=== PATIENT | female | born 1990 | race Caucasian/White ===

== ENCOUNTER → 2018-07-29 10:03 | Outpatient (CLI) | payer OTHER, MEDICAID, SELFPAY ==
[2018-07-30 11:17] LABS: Strep Grp B PCR NEG for Grp B Strep
== END ==
DX: Z34.83 Encounter for supervision of other normal pregnancy, third trimester (principal)
CPT/HCPCS: 87653

== ENCOUNTER 2018-08-28 04:25 | Inpatient (IN) | payer OTHER, MEDICAID, SELFPAY ==
--- NOTE | 2018-08-28 06:37 | PM.OBHP.1 ---
OB HPI Date/Time Date of admission: 08/28/18 Date Patient Seen: 08/28/18 Time Patient Seen: 06:20 History of Present Condition Chief complaint: OBSERVATION : 2 Para: 1 Estimated Date of Delivery: 08/29/18 Estimated Gestational Age (weeks): 39w6d Narrative: Sabrina Marks is a 28 year old at 39w6d who presented with regular painful contractions starting earlier in the evening. At the time of presentation, they were approximately 2-3 minutes apart. No LOF or vaginal bleeding. History of Present care: good care Dating criteria: based on 1st trimester US only Ultrasounds: normal mid trimester US Narrative: LSIL on pap smear, needs colposcopy Preadmission Labs Blood type: O (+) positive -: Antibody screen: negative, GBS status: negative, HBsAG: negative, HIV: negative, HSV 1: negative and HSV 2: negative -: Rubella: not immune and Varicella: immune HCT: 36.9 HCAB: negative PAP: Abnormal (LSIL) Quad screen: Normal Narrative: 1hr GTT never completed Prior (ies) History: 06/28/13 - at 40wks gestation without complications, male, 8lbs Evaluation Evaluation Baseline heart rate: 120 Variability: Moderate (11-25) monitor accelerations: Present monitor decelerations: Absent Contraction Frequency (minutes): 2 Uterine Contraction Intensity: Strong/Firm Category of Tracing: I Cervical dilation (cm): 5 Cervical effacement (%): 100 station: -1 [facility] Medical History Abnormal Pap smear of cervix (Chronic) Chicken pox (Resolved ~1996) Surgical History History of tonsillectomy (~1999) Meds Home Medications Medication Instructions Recorded Confirmed Type clindamycin HCl 300 mg PO TID #30 cap 09/04/17 Rx hydrocodone-acetaminophen [[place]] 1 - 2 tab PO Q6H PRN #10 tab 09/04/17 Rx Exam Const General: cooperative, healthy appearing, comfortable and well developed Nutritional Appearance: average body habitus Orientation: alert, awake and oriented x3 Neck Neck: No lymphadenopathy Resp Effort & Inspection: normal respiratory effort Auscultation: clear to auscultation bilaterally Cardio Rate: regular rate Rhythm: regular rhythm Heart Sounds: S1 normal, S2 normal and no murmurs GI Inspection: normal to inspection Palpation: soft Skin Rashes: no rashes Assessment and Plan (1) Term : Current visit: Yes Status: Acute Plan: Plan: 28yo at 39w6d who presented in active labor. No complications with . GBS negative, Rh positive. - Expectant management, anticipate - GBS negative, no prophylaxis indicated - Does not desire epidural for pain control - FHT reassuring - Natural methods for pain control
--- NOTE | 2018-08-28 06:46 | P.HPOB_ITS ---
OB HPI Date/Time Date of admission: 08/28/18 Date Patient Seen: 08/28/18 Time Patient Seen: 06:20 History of Present Condition Chief complaint: OBSERVATION : 2 Para: 1 Estimated Date of Delivery: 08/29/18 Estimated Gestational Age (weeks): 39w6d Narrative: Sabrina Marks is a 28 year old at 39w6d who presented with regular painful contractions starting earlier in the evening. At the time of presentation, they were approximately 2-3 minutes apart. No LOF or vaginal bleeding. History of Present care: good care Dating criteria: based on 1st trimester US only Ultrasounds: normal mid trimester US Narrative: LSIL on pap smear, needs colposcopy Preadmission Labs Blood type: O (+) positive -: Antibody screen: negative, GBS status: negative, HBsAG: negative, HIV: negative, HSV 1: negative and HSV 2: negative -: Rubella: not immune and Varicella: immune HCT: 36.9 HCAB: negative PAP: Abnormal (LSIL) Quad screen: Normal Narrative: 1hr GTT never completed Prior (ies) History: 06/28/13 - at 40wks gestation without complications, male, 8lbs Evaluation Evaluation Baseline heart rate: 120 Variability: Moderate (11-25) monitor accelerations: Present monitor decelerations: Absent Contraction Frequency (minutes): 2 Uterine Contraction Intensity: Strong/Firm Category of Tracing: I Cervical dilation (cm): 5 Cervical effacement (%): 100 station: -1 [facility] Medical History Abnormal Pap smear of cervix (Chronic) Chicken pox (Resolved ~1996) Surgical History History of tonsillectomy (~1999) Meds Home Medications Medication Instructions Recorded Confirmed Type clindamycin HCl 300 mg PO TID #30 cap 09/04/17 Rx hydrocodone-acetaminophen [[place]] 1 - 2 tab PO Q6H PRN #10 tab 09/04/17 Rx Exam Const General: cooperative, healthy appearing, comfortable and well developed Nutritional Appearance: average body habitus Orientation: alert, awake and oriented x3 Neck Neck: No lymphadenopathy Resp Effort & Inspection: normal respiratory effort Auscultation: clear to auscultation bilaterally Cardio Rate: regular rate Rhythm: regular rhythm Heart Sounds: S1 normal, S2 normal and no murmurs GI Inspection: normal to inspection Palpation: soft Skin Rashes: no rashes Assessment and Plan (1) Term : Current visit: Yes Status: Acute Plan: Plan: 28yo at 39w6d who presented in active labor. No complications with . GBS negative, Rh positive. - Expectant management, anticipate - GBS negative, no prophylaxis indicated - Does not desire epidural for pain control - FHT reassuring - Natural methods for pain control
--- NOTE | 2018-08-28 06:49 | PM.OBPRVD ---
Delivery date: 08/28/18 Intrapartal events: Precipitous Labor < 3 hours Induction method: none Delivery monitor: external FHT Route of delivery: Episiotomy description: None Laceration description: None Estimated blood loss (mL): 100 Anesthesia type: None Complications: None Narrative: PROCEDURE: at 39w6d presented in active labor and was admitted to Labor and Delivery. The patient progressed through the 1st stage over 4.5 hours. Pain was controlled with natural methods. Membranes spontaneously ruptured with clear fluid present. The patient progressed through the 2nd stage over 14 minutes and had a precipitous delivery by nursing staff of a viable baby girl with APGARs 8/9 at 6:12 via . Terminal meconium was present. The perineum and vagina were inspected with no lacerations present. PREPROCEDURE DIAGNOSIS: Intrauterine at 39w6d GBS negative RH positive POSTPROCEDURE DIAGNOSIS: Intrauterine at 39w6d, delivered Same as preprocedure PROCEDURE: INDUCTION: No LABOR AUGMENTATION: None ROM APPEARANCE: Clear, then terminal meconium BABY A DELIVERY TIME: 6:12 BABY A OUTCOME: Viable BABY A WEIGHT: [] BABY A NUCHAL CORD: x1, reduced after delivery BABY A CORD GASES OBTAINED: None PLACENTA DELIVERY TIME: 6:26 PLACENTA APPEARANCE: Intact [place] Baby 1: Infant gender: Female Presentation: vertex position: Right Occiput Anterior Placenta delivery description: Spontaneous cord vessel description: 3 Vessels score (1 min): 8 score (5 min): 9 Plan for aftercare: Normal care support
[2018-08-28 07:50] LABS: Add Manual Diff / Slide Review NO; Basophils Percent Auto 0.6 % (0-2); Eosinophils Percent Auto 0.3 % (2-4); Hematocrit 44.6 % (36-46); Hemoglobin 15.4 g/dL (12.0-16.0); Lymphocytes Percent Auto 16.8 % (25-40); Mean Corpuscular HGB Conc 34.5 % (30-36); Mean Corpuscular Hemoglobin 32.5 PG (26-34); Mean Corpuscular Volume 94.1 fL (80-100); Monocytes Percent Auto 5.5 % (3-14); Neutrophils Absolute Auto 11300 /uL (3000-5900); Neutrophils Percent Auto 76.8 % (50-75); Platelet Count 148 X10^3/uL (150-400); Red Blood Cell Count 4.74 X10^6/uL (4.0-5.2); Red Cell Distribution Width 12.9 % (11.6-14.8); White Blood Cell Count 14.7 X10^3/uL (4.5-11.0)
[2018-08-28] MEDS: DOCUSATE 250 MG CAPSULE PO (09:11)
[2018-08-28] MEDS: PRENATAL VIT,CALC/IRON/FOLIC 1 TABLET 1 TAB PO (09:15)
[2018-08-28] MEDS: IBUPROFEN 600 MG TABLET PO ×2 (09:15→15:09)
[2018-08-28 10:20] VITALS: BP 135/89
--- NOTE | 2018-08-28 14:20 | P.DS_ITS ---
Discharge Providers Date of admission: 08/28/18 04:25 Consults: 08/28/18 09:02 Consult to Labeler Routine Comment: Discharge provider: Adriana Mcelroy MD Discharge Date: 08/28/18 Summary Date Patient Seen: 08/28/18 Time Patient Seen: 14:20 Hospital Course: Patient arrived on Labor and delivery in active labor. She had a precipitous spontaneous vaginal delivery she had no tears. The patient was urinating and ambulatory. She requests early discharge because she is unable to quit smoking and declines trying a a smoking patch. She feels she needs to leave the hospital so she can smoke. The baby will remain in the hospital and she will come and go. The patient's abdomen is soft, nontender. Uterus is firm, at U, nontender. Mild lochia. Extremities without edema and nontender. Peripartum Data Infant Delivery Method: Natural Vaginal Laceration description: None Procedures: Spontaneous vaginal delivery complications: none Discharge Diagnosis (1) Term : Status: Acute (2) Vaginal delivery: Status: Acute (3) Smoker unmotivated to quit: Status: Acute Status at Discharge Functional status at discharge: independent ambulation Overall status at discharge: patient is progressing back to baseline Time Spent with Patient Total time spent providing and/or coordinating discharge services: Less than 30 minutes Time spent discussing smoking cessation with patient: 3 to 10 minutes Objective Labs Result Diagrams: 08/28/18 05:40 Labs: Laboratory Results - last 24 hr 08/28/18 08/28/18 05:40 05:40 WBC 14.7 H RBC 4.74 Hgb 15.4 Hct 44.6 MCV 94.1 MCH 32.5 MCHC 34.5 RDW 12.9 Plt Count 148 L Neut % (Auto) 76.8 H Lymph % (Auto) 16.8 L [place] % (Auto) 5.5 Eos % (Auto) 0.3 L Baso % (Auto) 0.6 Neut # (Auto) 47108 H Blood Type O Positive Antibody Screen Negative Discharge Plan Discharge Plan Patient Disposition: Home Discharge comment: Follow up with Dr. Molina SaturdayOctober 07 at 10:45 for 6 week appointment. MMR needed. Discharge Med Rec/Prescriptions Prescriptions: New ibuprofen 600 mg Tablet 600 mg PO Q6HR PRN (Reason: Pain, Mild (1-3)) Qty: 30 RF: 0 Discontinued clindamycin HCl 300 MG capsule 300 mg PO TID Qty: 30 RF: 0 hydrocodone-acetaminophen [[place]] 5 MG/325 MG tablet 1 - 2 tab PO Q6H PRNQty: 10 RF: 0 Follow up/Referrals: Bhavani Chung MD [Physician] - 6 Weeks Shaun Molina MD [Physician] - 6 Weeks Provider Discharge Instructions Diet: Regular Skin/Wound/Dressing Care Report to your healthcare provider any signs of infection, such as:: chills, fever, increased pain and unusual drainage Visit Report/Discharge Packet Stand Alone Forms: Discharge: Care Visit Report Forms: Stroke Signs & Symptoms Discharge Data Attending Provider: Bhavani Chung Admit Date/Time: 08/28/18 04:25 Discharges patient from system. Discharge Date/Time: 08/28/18 15:45
[2018-08-28 15:10] VITALS: BP 132/86; PULSE 62; RESP 18; TEMP 36.3
[2018-08-28 15:22] VITALS: BP 132/86; PULSE 62; RESP 18; TEMP 36.3
== END 2018-08-28 15:45 | disposition home or self-care (01) | DRG 560 ==
PROVIDERS: Admitting Provider Family Medicine; Visit Provider Family Medicine
DX: O62.3 Precipitate labor (principal); Z3A.39 39 weeks gestation of pregnancy; Z37.0 Single live birth; O77.0 Labor and delivery complicated by meconium in amniotic fluid; O69.81X0 Labor and delivery complicated by cord around neck, without compression, not applicable or unspecified; O99.334 Smoking (tobacco) complicating childbirth; F17.210 Nicotine dependence, cigarettes, uncomplicated
CPT/HCPCS: 59050; 59409; 85025; 86850; 86900; 86901; G0379

== ENCOUNTER 2018-10-27 18:26 | Emergency (ER) | payer OTHER, MEDICAID, SELFPAY ==
[2018-10-27 18:31] VITALS: BP 132/87; PULSE 88; RESP 14; TEMP 37; O2SAT 99; BMI 25.7
[2018-10-27] MEDS: ACETAMINOPHEN 325 MG TABLET 975 MG PO (18:37)
--- NOTE | 2018-10-27 19:19 | ED_ITS ---
HPI - Ear Problem <Tammie Alvarez PA-C - Last Filed: 10/27/18 21:15> General Chief complaint: Ear Stated complaint: LEFT SIDE EAR PAIN Time Seen by Provider: 10/27/18 19:33 Source: patient Mode of arrival: ambulatory Limitations: no limitations History of Present Illness HPI Narrative: This 28-year-old female comes to ED due to onset of left earache this morning. She states that she took ibuprofen and went to work, but pain has been worsening. She denies any drainage from the ear. She states her hearing is normal, but the ear seems kind of sensitive, i.e. to air. She denies any sore throat, congestion, sinus pain, cough or other upper respiratory symptoms. She denies any fever or other new complaints. She is breast feeding Related Data Home Medications Medication Instructions Recorded Confirmed ibuprofen 200 mg PO Q6HR PRN 10/27/18 10/27/18 Previous Rx's Medication Instructions Recorded ibuprofen 800 mg PO TID PRN #30 tab 10/27/18 Allergies Allergy/AdvReac Type Severity Reaction Status Date / Time No Known Drug Allergies Allergy Verified 10/07/18 11:05 Review of Systems <Tammie Alvarez PA-C - Last Filed: 10/27/18 21:15> Review of Systems All systems reviewed & are unremarkable except as noted in HPI and below Exam <Tammie Alvarez PA-C - Last Filed: 10/27/18 21:15> Narrative Exam Narrative: GENERAL APPEARANCE: Patient sitting comfortably, in no distress. HEAD: No sinus TTP. EYES: PERRL, EOMI. EARS: Normal auditory canals, TMS intact, but L. is slightly retracted with minimal injection. No external tenderness ORAL CAVITY: Normal oropharynx. THROAT: Clear. Tonsils absent NECK/THYROID: Neck supple, full range of motion, small tender shotty anterior nodes LUNGS: Clear to auscultation bilaterally, no cough on exam. HEART: RRR without murmur, nl S1, S2, no S3 or S4. Initial Vital Signs Initial Vital Signs: Vital Signs Temperature 98.6 F 10/27/18 18:31 Pulse Rate 88 18 18:31 Respiratory Rate 14 18 18:31 Blood Pressure 132/87 10/27/18 18:31 Pulse Oximetry 99 10/27/18 18:31 <Shaun Palomo MD - Last Filed: 10/28/18 07:20> Initial Vital Signs Initial Vital Signs: Vital Signs Temperature 98.6 F 10/27/18 18:31 Pulse Rate 88 10/27/18 18:31 Respiratory Rate 14 18 18:31 Blood Pressure 132/87 10/27/18 18:31 Pulse Oximetry 99 10/27/18 18:31 Course <Tammie Alvarez PA-C - Last Filed: 10/27/18 21:15> Orders Ordered: Discontinued Medications Acetaminophen (Tylenol) 975 mg PO NOW ONE Stop: 10/27/18 18:37 Last Admin: 10/27/18 18:37 Dose: 975 mg Vital Signs - 8 hr 10/27/18 18:31 10/27/18 19:21 10/27/18 20:02 Temperature 98.6 F 98.6 F Pulse Rate 88 88 71 Respiratory Rate 14 14 16 Blood Pressure 132/87 132/87 Blood Pressure [Left Arm] 115/82 Pulse Oximetry 99 99 97 <Shaun Palomo MD - Last Filed: 10/28/18 07:20> Orders Ordered: Discontinued Medications Acetaminophen (Tylenol) 975 mg PO NOW ONE Stop: 10/27/18 18:37 Last Admin: 10/27/18 18:37 Dose: 975 mg Vital Signs - 8 hr 18 18:31 10/27/18 19:21 10/27/18 20:02 Temperature 98.6 F 98.6 F Pulse Rate 88 88 71 Respiratory Rate 14 14 16 Blood Pressure 132/87 132/87 Blood Pressure [Left Arm] 115/82 Pulse Oximetry 99 99 97 Discharge Plan Departure Patient Disposition: Home Clinical Impression: Acute otalgia Discharge Date/Time: 10/27/18 20:11 Interventions: ED Discharge Assessment Last Done: 10/27/18 20:11 Instructions: DI for Ear Pain-Adult Activity Restrictions/Additional Instructions: Please return as we talked about if you have acutely worsening symptoms, or new symptoms such as high fever. Please take the ibuprofen every 8 hr and you can at Tylenol as needed. You can also use cotton in the ear and a warm pack may be helpful as well. Please follow up with your PCP for recheck if this is not better in the next day or two. (This may be acute irritation or may be a virus since your 7 year old was sick) Prescriptions: New ibuprofen 800 mg tablet 800 mg PO TID PRN (Reason: pain) Qty: 30 RF: 0 No Action ibuprofen 600 mg tablet 200 mg PO Q6HR PRN (Reason: Pain, Mild (1-3)) RF: 0 Referrals: Bhavani Chung MD [Physician] - <Shaun Palomo MD - Last Filed: 10/28/18 07:20> [facility] I was present in the ER at the time this patient's care. I was available for verbal consultation or to see the patient directly. I agree with his assessment and treatment plan.
[2018-10-27 19:21] VITALS: BP 132/87; PULSE 88; RESP 14; TEMP 37; O2SAT 99; BMI 25.7
[2018-10-27 20:02] VITALS: BP 115/82; PULSE 71; RESP 16; O2SAT 97
== END 2018-10-27 20:11 | disposition home or self-care (01) ==
PROVIDERS: Emergency Provider Internal Medicine
DX: H92.02 Otalgia, left ear (principal)
CPT/HCPCS: 99282; 99283

== ENCOUNTER 2018-10-29 04:22 | Emergency (ER) | payer OTHER, MEDICAID, SELFPAY ==
--- NOTE | 2018-10-29 04:28 | ED.EAR ---
HPI - Ear Problem General Chief complaint: Ear Stated complaint: Left Ear Sensitive, feels swollen, pain down face Time Seen by Provider: 10/29/18 04:26 Source: patient Mode of arrival: ambulatory Limitations: no limitations History of Present Illness HPI Narrative: Patient is a 28-year-old female who is currently breast-feeding. Was seen here in the emergency department a couple days ago for left ear pain. Will send home with ibuprofen. There is no defined infections seen at that point after reviewing the note from that visit. Patient states she has been taking Tylenol and Motrin with only minimal relief. No hearing issues in that ear. Not having any sinus congestion. No subjective fevers but has had chills. No sore throat. Related Data Home Medications Medication Instructions Recorded Confirmed ibuprofen 200 mg PO Q6HR PRN 10/27/18 10/27/18 Previous Rx's Medication Instructions Recorded ibuprofen 800 mg PO TID PRN #30 tab 10/27/18 penicillin V potassium 500 mg PO QID 7 Days #28 tab 10/29/18 Allergies Allergy/AdvReac Type Severity Reaction Status Date / Time No Known Drug Allergies Allergy Verified 10/07/18 11:05 Review of Systems Constitutional Reports chills and Denies fever(s) Eyes Denies change in vision ENT Ears, Nose, Mouth, and Throat: Denies vertigo, Denies dizziness, Denies ear discharge, Reports otalgia, Reports facial pain, Denies hearing loss, Denies mouth lesions, Denies mouth pain, Denies nasal congestion, Denies tinnitus, Denies sinus pressure, Denies sore throat, Denies throat swelling and Denies tongue swelling Cardiovascular Denies chest pain and Denies dyspnea Respiratory Denies dyspnea Neurologic Denies vertigo and Denies dizziness Allergic/Immunologic Denies throat swelling and Denies tongue swelling [facility] Surgical History History of tonsillectomy (~1999) Social History Smoking Status: Current every day smoker Exam Initial Vital Signs Initial Vital Signs: Vital Signs Temperature 97.6 F 10/29/18 04:29 Pulse Rate 97 H 10/29/18 04:29 Respiratory Rate 17 10/29/18 04:29 Blood Pressure 124/87 10/29/18 04:29 Pulse Oximetry 97 10/29/18 04:29 Const General: cooperative, comfortable, well developed, well groomed and No acute distress Orientation: alert, awake and oriented x3 HENMT Head: normal to inspection and normocephalic Ears: TM's normal bilaterally and EAC's normal Nose: external nose normal Face and sinus: other (Left maxillary sinus tenderness to percussion) Mouth: oral mucosae normal, lip normal and tongue normal Teeth and gingiva: other (Patient with cracked tooth number 18) Throat: posterior oropharynx normal Neck Lymphatic: lymphadenopathy (Left-sided anterior posterior cervical lymphadenopathy and submandibular) Resp Effort & Inspection: normal respiratory effort Auscultation: clear to auscultation bilaterally Cardio Rate: regular rate Rhythm: regular rhythm Skin Lesions: no lesions Neuro General: alert, awake and oriented x3 Extrem General: normal to inspection and capillary refill normal Psych Appearance: grossly normal and well kempt Course Vital Signs - 8 hr 10/29/18 04:29 Temperature 97.6 F Pulse Rate 97 H Respiratory Rate 17 Blood Pressure 124/87 Pulse Oximetry 97 Medical Decision Making Medical Records Medical records reviewed: Yes I reviewed the patient's medical records. [facility] Narrative Medical decision making narrative: Patient's tympanic membranes bilaterally are unremarkable. Does have tender left-sided lymphadenopathy. She does have tenderness to palpation of the left maxillary sinus. She does have a cracked left lower tooth. She does have some discomfort in this area however there is no defined abscess seen on the exam. The lymphadenopathy the could be secondary to a dental flexion that is just not seen on the exam. To be secondary to upper respiratory infection, sinus infection. Informed patient that she should start taking decongestants such as Claritin or Billie or Zyrtec. She was informed she could buy these [id number]. Given the cracked tooth in the location of the pain and the lack of other findings will treat with penicillin for a potential dental infection. She was informed she needed to contact her dentist for a follow-up. We did discuss the fact that she is . Informed her that these medications would be excreted in the breast milk. According to up-to-date penicillin VK is generally accepted as compatible with . I did inform the patient of this. We discussed return precautions. She expressed understanding and agreement with plan. Discharge Plan Departure Patient Disposition: Home Clinical Impression: Lymphadenopathy, cervical, Fracture of tooth Discharge Date/Time: 10/29/18 05:01 Interventions: ED Discharge Assessment Last Done: 10/29/18 05:01 Instructions: DI for Lymphadenopathy Activity Restrictions/Additional Instructions: I recommend that you continue with the Motrin and Tylenol as directed. I also recommend that you start taking a decongestant such as Claritin or Billie or Zyrtec or the generic versions of these medications. They can be purchased [id number]. Start taking the antibiotics as directed. All of these medications are excreted in the breast milk however they are all generally accepted safe in breast-feeding individuals. You do need to see a dentist regarding that fractured tooth. Call your primary care doctor for follow-up as well. Prescriptions: New penicillin V potassium 500 mg tablet 500 mg PO QID 7 Days Qty: 28 RF: 0 No Action ibuprofen 600 mg tablet 200 mg PO Q6HR PRN (Reason: Pain, Mild (1-3)) RF: 0 ibuprofen 800 mg tablet 800 mg PO TID PRN (Reason: pain) Qty: 30 RF: 0
[2018-10-29 04:29] VITALS: BP 124/87; PULSE 97; RESP 17; TEMP 36.4; O2SAT 97
== END 2018-10-29 05:01 | disposition home or self-care (01) ==
PROVIDERS: Emergency Provider Emergency Medicine
DX: R59.0 Localized enlarged lymph nodes (principal); S02.5XXA Fracture of tooth (traumatic), initial encounter for closed fracture
CPT/HCPCS: 99282

== ENCOUNTER 2020-08-31 18:23 | Inpatient (IN) | payer OTHER, MEDICAID, SELFPAY ==
[2020-08-31 19:26] LABS: Add Manual Diff / Slide Review NO; Basophils Absolute Auto 100 /uL (0-100); Eosinophils Absolute Auto 100 /uL (0-450); Eosinophils Percent Auto 0.6 % (2-4); Hematocrit 37.6 % (36-46); Hemoglobin 12.6 g/dL (12.0-16.0); Lymphocytes Absolute Auto 1800 /uL (1100-4500); Lymphocytes Percent Auto 19.2 % (25-40); Mean Corpuscular HGB Conc 33.5 % (30-36); Mean Corpuscular Volume 86.6 fL (80-100); Monocytes Absolute Auto 500 /uL (0-900); Monocytes Percent Auto 5.1 % (3-14); Neutrophils Absolute Auto 6800 /uL (1500-7000); Neutrophils Percent Auto 74.1 % (50-75); Platelet Count 116 X10^3/uL (150-400); Red Blood Cell Count 4.34 X10^6/uL (4.0-5.2); Red Cell Distribution Width 14.2 % (11.6-14.8); White Blood Cell Count 9.1 X10^3/uL (4.5-11.0)
[2020-08-31] MEDS: ACETAMINOPHEN 325 MG TABLET 650 MG PO (19:42)
[2020-08-31] MEDS: IBUPROFEN 600 MG TABLET PO (19:43)
[2020-08-31 20:18] LABS: Ur Creatinine Normal (Normal); Ur Specific Gravity Normal (Normal); Urine Cocaine Negative (Negative); Urine Tetrahydrocannabinol Positive (Negative); Urine pH Normal (Normal)
[2020-08-31 20:19] LABS: UR Morphine/Opiate cutoff 300 Negative (Negative); Urine Amphetamines Positive (Negative); Urine Barbiturates Negative (Negative); Urine Benzodiazepines Negative (Negative); Urine MDMA Negative (Negative); Urine Methadone Negative (Negative); Urine Methamphetamines Positive (Negative); Urine Oxycodone Negative (Negative); Urine Phencyclidine Negative (Negative); Urine Tricyclic Antidepressant Negative (Negative)
[2020-08-31 20:42] LABS: Hepatitis B Surface Antigen NEGATIVE s/c (NEGATIVE); Rubella Antibody IgG 4.2 IU/mL (>15)
[2020-08-31 20:45] LABS: HIV 1 & 2 Ab/Ag 4th Gen Combo NEGATIVE (NEGATIVE); Hep C Virus Ab w/Reflex Quant NEGATIVE s/c (NEGATIVE)
[2020-08-31 21:19] LABS: Urine N gonorrhoeae DETECTED
--- NOTE | 2020-08-31 21:40 | PM.HP.1 ---
History of Present Illness History of Present Illness Date Patient Seen: 08/31/20 Time Patient Seen: 21:41 Chief complaint: Obs Narrative: Antonette is a 30 year old [id number] at unknown gestational age with no care who presents via EMS after precipitous delivery at home by the father. Paramedics report that the baby was found crying vigorously. Placenta delivered spontaneously at home with no hemorrhage. Vital signs during transfer were reportedly stable. OBSTETRIC HISTORY: 06/28/2013: at 40 weeks gestational age, viable male 08/28/2018, at 39 weeks 6 days, viable female GYNECOLOGICAL HISTORY: LSIL PAST MEDICAL HISTORY: Chickenpox PAST SURGICAL HISTORY: Tonsillectomy FAMILY HISTORY: Noncontributory SOCIAL HISTORY: Single. Polysubstance abuse with methamphetamine and marijuana. Tobacco smoker, 1/2 pack per day. Mother wants to put the baby up for adoption to Torie Bernard, a close friend. She does not want any baby bonding time. Mother is currently living with her boyfriend, Francisco, in his mother's home in [place]. A 24-year-old nephew also lives there. Patient reports that her social living situation is unstable and that it is not suitable to bring a baby back into it. Her other 2 children are not currently living with her. She is unemployed. Patient History Medical History (Updated 11/13/18 @ 00:00 by ) Abnormal Pap smear of cervix (Chronic) Chicken pox (Resolved ~1996) Surgical History (Updated 04/20/18 @ 23:35 by Kell De Jesus) History of tonsillectomy (~1999) Family & Social History Tobacco & Substance use: Tobacco type cigarettes Smoking Status Current every day smoker alcohol intake frequency 0-2 drinks per day Substance Use Type does not use Meds Home Medications and Allergies Home Medications Medication Instructions Recorded Confirmed Type ibuprofen 200 mg PO Q6HR PRN 10/27/18 10/27/18 History ibuprofen 800 mg PO TID PRN #30 tab 10/27/18 Rx Allergies Allergy/AdvReac Type Severity Reaction Status Date / Time No Known Drug Allergies Allergy Verified 10/07/18 11:05 Review of Systems Review of Systems ROS: Yes All systems reviewed with the patient and are negative except as otherwise documented Exam Narrative Exam Narrative: General: NAD Skin: Color unremarkable, no rash nor lesions. HEENT: Neck supple with midline trachea. Lungs: CTAB, No wheezes, rhonchi, or rales. Heart: Normal rate, and regular rhythm, S1, S2 normal, no murmur, click, rub or gallop. Abdomen: Firm fundus at umbilicus -0, soft, non-tender, nondistended, positive bowel sounds. Extremities: No clubbing, no edema, no cyanosis. Pelvis: Normal female external genitalia, no tears. Objective Labs Result Diagrams: 08/31/20 19:10 Labs: Laboratory Results - last 24 hr 08/31/20 08/31/20 08/31/20 19:10 19:10 19:25 WBC 9.1 RBC 4.34 Hgb 12.6 Hct 37.6 MCV 86.6 MCH 29.0 MCHC 33.5 RDW 14.2 Plt Count 116 L Neut % (Auto) 74.1 Lymph % (Auto) 19.2 L [place] % (Auto) 5.1 Eos % (Auto) 0.6 L Baso % (Auto) 1.0 Neut # (Auto) 6800 Lymph # (Auto) 1800 [place] # (Auto) 500 Eos # (Auto) 100 Baso # (Auto) 100 U Opiates 300ng/mL cut Negative Ur Oxycodone Screen Negative Urine Methadone Screen Negative Ur Barbiturates Screen Negative U Tricyclic Antidepress Negative Ur Phencyclidine Scrn Negative Ur Amphetamines Screen Positive H U Methamphetamines Scrn Positive H Ur MDMA Scrn (Ecstasy) Negative U Benzodiazepines Scrn Negative Urine Cocaine Screen Negative U Marijuana (THC) Screen Positive H Hep Bs Antigen Negative Hepatitis C Antibody Negative HIV 1&2 Ab/P24 Ag 4thGn Negative Rubella Antibody 4.2 L Assessment & Plan Assessment & Plan narrative: 1. Status post precipitous home delivery at unknown gestational age, presumably term 2. 3. Polysubstance abuse 4. Absent care 5. Tobacco dependence Plan: Admit to labor and delivery with routine orders. Will run panel. [facility] protocol for drug withdrawal. Mother does not intend to breastfeed and wants to put the baby up for adoption. CPS will be called in the morning to make arrangements. Nicotine patch for tobacco dependence. Questions answered, appropriate consents will be signed.
[2020-08-31 22:02] LABS: Urine Chlamydia NOT DETECTED
[2020-08-31 23:29] LABS: COVID19 -Nasal RAPID Negative (Negative)
[2020-09-01] MEDS: IBUPROFEN 600 MG TABLET PO ×3 (01:32→19:46)
[2020-09-01] MEDS: ACETAMINOPHEN 325 MG TABLET 650 MG PO (01:32)
--- NOTE | 2020-09-01 08:01 | P.PNOB_ITS ---
Subjective - OB Subjective Patient comments: no complaints, pain well controlled, tolerating diet and flatus present baby status: adopting out Steward feeding status: exclusively bottle feeding Date Patient Seen: 09/01/20 Time Patient Seen: 08:01 Interval history: Sabrina is doing well this morning. Pain controlled with medications. Lochia less than menses. Tolerating full diet, no nausea vomiting. Has been able to ambulate. Exam Narrative Exam Narrative: General: NAD Skin: Color unremarkable, no rash nor lesions. HEENT: Neck supple with midline trachea. Lungs: CTAB, No wheezes, rhonchi, or rales. Heart: Normal rate, and regular rhythm, S1, S2 normal, no murmur, click, rub or gallop. Abdomen: Firm fundus at umbilicus -0, soft, non-tender, nondistended, positiv e bowel sounds. Extremities: No clubbing, no edema, no cyanosis. Pelvis: Normal female external genitalia, no tears. Objective Labs Result Diagrams: 08/31/20 19:10 Labs: Laboratory Results - last 24 hr 08/31/20 08/31/20 08/31/20 19:10 19:10 19:10 WBC 9.1 RBC 4.34 Hgb 12.6 Hct 37.6 MCV 86.6 MCH 29.0 MCHC 33.5 RDW 14.2 Plt Count 116 L Neut % (Auto) 74.1 Lymph % (Auto) 19.2 L [place] % (Auto) 5.1 Eos % (Auto) 0.6 L Baso % (Auto) 1.0 Neut # (Auto) 6800 Lymph # (Auto) 1800 [place] # (Auto) 500 Eos # (Auto) 100 Baso # (Auto) 100 U Opiates 300ng/mL cut Ur Oxycodone Screen Urine Methadone Screen Ur Barbiturates Screen U Tricyclic Antidepress Ur Phencyclidine Scrn Ur Amphetamines Screen U Methamphetamines Scrn Ur MDMA Scrn (Ecstasy) U Benzodiazepines Scrn Urine Cocaine Screen U Marijuana (THC) Screen Ur Chlamydia DNA (PCR) COVID-19 PCR Hep Bs Antigen Negative Hepatitis C Antibody Negative HIV 1&2 Ab/P24 Ag 4thGn Negative Rubella Antibody 4.2 L N gonorrhoeae DNA (PCR) Blood Type O Positive Antibody Screen Negative 10/21/20 10/21/20 10/21/20 19:20 19:25 20:15 WBC RBC Hgb Hct MCV MCH MCHC RDW Plt Count Neut % (Auto) Lymph % (Auto) [place] % (Auto) Eos % (Auto) Baso % (Auto) Neut # (Auto) Lymph # (Auto) [place] # (Auto) Eos # (Auto) Baso # (Auto) U Opiates 300ng/mL cut Negative Ur Oxycodone Screen Negative Urine Methadone Screen Negative Ur Barbiturates Screen Negative U Tricyclic Antidepress Negative Ur Phencyclidine Scrn Negative Ur Amphetamines Screen Positive H U Methamphetamines Scrn Positive H Ur MDMA Scrn (Ecstasy) Negative U Benzodiazepines Scrn Negative Urine Cocaine Screen Negative U Marijuana (THC) Screen Positive H Ur Chlamydia DNA (PCR) Not detected COVID-19 PCR Negative Hep Bs Antigen Hepatitis C Antibody HIV 1&2 Ab/P24 Ag 4thGn Rubella Antibody N gonorrhoeae DNA (PCR) Detected H Blood Type Antibody Screen Assessment & Plan Plan day: 1 Comments: 1. Status post precipitous home delivery at unknown gestational age, presumably term 2. 3. Polysubstance abuse 4. Absent care 5. Tobacco dependence 6. Gonorrhea infection, new Plan: 1. Routine care. 2. Status post ceftriaxone and azithromycin for treatment of gonorrhea 3. [facility] protocol for drug withdrawal. 4. Nicoderm. 5. CPS consulting. Disposition: Anticipate late discharge this afternoon after CPS meeting with patient. Time Spent With Patient Time: Total time spent is greater than 50% in coordination of care (as documented) at patient's floor/unit and/or counseling patient: Time with patient: Greater than 35 minutes
[2020-09-01] MEDS: NICOTINE 14 PATCH 14 MG TOP (09:30)
[2020-09-01] MEDS: AZITHROMYCIN 250 MG TABLET 1000 MG PO (10:15)
[2020-09-01] MEDS: cefTRIAXone 1,000 MG VIAL 250 MG IM (10:58)
[2020-09-02 01:26] VITALS: BP 110/83; PULSE 75; RESP 18; TEMP 36.8
[2020-09-02 05:14] LABS: RPR Screen Non Reactive (Non Reactive)
--- NOTE | 2020-09-02 07:33 | P.DS_ITS ---
Discharge Providers Provider Date of admission: 08/31/20 18:23 Discharge Date: 09/02/20 Primary care physician: Patricia Holland MD Consults: 08/31/20 19:39 Consult to CROSSING WATCHMAN - Manager Product Routine Comment: no care, verbalizes desire for adoption CROSSING WATCHMAN Consult: Substance Abuse Assess [facility] Health Res Need 09/01/20 18:50 Consult to It Applications Manager Routine Comment: Discharge provider: Patricia Holland MD Summary Hospital Course Date Patient Seen: 09/02/20 Procedures: None, delivered at home Hospital Course: Unremarkable except for gonorrhea infection that was picked up at lab screening upon admission. She was treated prior to discharge. Partner was advised to be treated as well. Mother is not as she is adopting out the baby. Tolerating full diet with no nausea vomiting. Ambulating well. Lochia less than menses. On day of discharge, she is afebrile with stable vital signs throughout. Discharge diagnoses: 1. 30 yo 2. Status post at unknown gestational age 3. Polysubstance abuse 4. Absent care 5. Tobacco dependence 6. Gonorrhea infection, new, treated prior to discharge Time Spent with Patient Time attestation: Total time spent providing and/or coordinating discharge services: 35 Objective Labs Result Diagrams: 08/31/20 19:10 Labs: Laboratory Results - last 24 hr 08/31/20 08/31/20 19:10 19:20 Serum VDRL Non reactive Ur Chlamydia DNA (PCR) Not detected N gonorrhoeae DNA (PCR) Detected H Exam Vital Signs (past 8 hours): - 09/02/20 01:26 Temperature 98.2 F Pulse Rate 75 Respiratory Rate 18 Blood Pressure 110/83 Narrative Exam Narrative: GENERAL: Alert and oriented, appearing stated age and in no acute distress. HEENT: Head normocephalic/atraumatic. Pupils equal, round, and reactive to light and accomodation. Extraocular muscles intact. Tympanic membranes clear. Nasal mucosa moist, septum midline. Oral mucosa moist, no lesions. Neck soft and supple, no lymphadenopathy. LUNGS: Clear to ausculation bilaterally, no wheezes, rhonchi or rales. CV: Normal S1 and S2 with regular rate and rhythm, no audible murmurs, rubs or gallops. ABDOMEN: FF at U-2. Soft, non-tender, non-distended, no organomegaly. Positive bowel sounds. EXTREMITIES: No clubbing, cyanosis, or edema. NEURO: Cranial nerves II through XII grossly intact, no focal deficits. PSYCH: Alert and oriented x 3. SKIN: No concerning lesions. Discharge Plan Discharge Plan Patient Disposition: Home Provider Discharge Comment: Please follow up with for a 6 week appointment Discharge orders & Medications Follow up/Referrals: Patricia Holland MD [Primary Care Provider] - Diet/Activity/Treatments Diet: Diet as Tolerated Activity: 1. Routine care 2. No driving for 2 weeks. 3. Call or return for uncontrolled pain, fever, intractable nausea or vomiting, trouble with urination, heavy vaginal bleeding greater than 1 pad per hour, suicidal/homicidal thoughts, signs or symptoms of infection, or any other concerns. Visit Report/Discharge Packet Instructions: DI for Labor and Delivery, Vaginal Visit Report Forms: Patient Portal/API, Stroke Signs & Symptoms Discharge Data Primary Care Provider: Patricia Holland Discharges patient from system. Discharge Date/Time: 09/02/20 01:15
--- NOTE | 2020-09-02 09:13 | CM.SWNOTE ---
Late Entry JEWELRY BEARING MAKER Note This JEWELRY BEARING MAKER requested for consult yesterday to complete ERNA assessment for mom of new baby boy Kendrick, baby delivered by Dad at home then brought in by EMS, mom positive for meth and amphetamines, admitted to polysubstance use throughout and meth use approx 2 days before , no care, mom requesting adoption of baby, states to staff her home is not fit for a baby- and not interested in seeing or bonding w/baby. Mom left this morning at 0100, this JEWELRY BEARING MAKER unable to see speak w/mom yesterday d/t time spent in coordination w/CPS to discuss emergency placement for baby boy Kendrick (named [place] by Bio mom/dad); according to mom's DC Summary: Discharge diagnoses: 1. 30 yo 2. Status post at unknown gestational age 3. Polysubstance abuse 4. Absent care 5. Tobacco dependence 6. Gonorrhea infection, new, treated prior to discharge In coordination w/ CPS worker Brea Boswell P# [phone] and her Quality Assurance Supervisor Sara Champion P#[phone]; according to conversation- Brea had been working w/mom re: her two other children, 7 and 2 yo currently in temporary foster care, separate placements. Mom Sabrina had not disclosed to CPS that she was until approx. 2 weeks ago and had not sought care. Brea met w/bio mom and dad yesterday, reviewed plan for emergency placement and CPS custody, court order for p/u from the hospital, and both mom and dad agreed. Brea offered resources for [facility] and suggested to bio parents that they had the chance to work towards regaining custody of baby TimmyBrea suggested a 0900 mtg this morning by phone w/bio mom and dad to discuss family placement options...since CPS has had difficulty during COVID-19 Pandemic, in securing emergency foster placements for babies/children. F/u will need to now take place between CPS and bio parents as mom left early this AM stating she needed to smoke. Update from [facility] Rose this AM; Dr Holland plans to keep baby boy throughout the day, possible DC this afternoon evening, monitoring closely for s/sx of w/d, baby's tox positive for meth, meconium sent yesterday by [facility]. yesterday baby [place] was feeding, pooping and peeing normally, today would be high risk day for s/sx w/d according to nurses. Updated Brea re: baby under close monitoring for w/d...baby would be transferred if s/sx of w/d presented Following closely for support, and coordination of safe plan for baby amena Warner VIVIAN Wise
== END 2020-09-02 01:15 | disposition home or self-care (01) | DRG 561 ==
PROVIDERS: Admitting Provider Student in an Organized Health Care Education/Training Program; PCP Student in an Organized Health Care Education/Training Program; Referring Provider Student in an Organized Health Care Education/Training Program; Visit Provider Student in an Organized Health Care Education/Training Program
DX: Z39.0 Encounter for care and examination of mother immediately after delivery (principal); O98.22 Gonorrhea complicating childbirth; O99.324 Drug use complicating childbirth; O62.3 Precipitate labor; O99.334 Smoking (tobacco) complicating childbirth; F17.210 Nicotine dependence, cigarettes, uncomplicated; F19.10 Other psychoactive substance abuse, uncomplicated; F15.10 Other stimulant abuse, uncomplicated
CPT/HCPCS: 36415; 80055; 80305; 86803; 86850; 86900; 86901; 87389; 87491; 87591; 87635; G0379; J0696

== ENCOUNTER 2021-08-30 10:22 | Inpatient (IN) | payer OTHER, MEDICAID, SELFPAY ==
[2021-08-30] MEDS: OXYTOCIN PREMIX 30 UNIT/500 ML PLAST..BAG 250 UNIT IV (11:20)
[2021-08-30] MEDS: LACTATED RINGERS 1,000 ML 125 ML IV (11:20)
[2021-08-30] MEDS: KETOROLAC 30 MG/ML VIAL IV (11:31)
[2021-08-30 11:37] VITALS: BP 138/98
[2021-08-30 12:01] LABS: COVID19 - ADMIT (NP swab/PCR) Negative (Negative)
--- NOTE | 2021-08-30 12:49 | PM.OBHP.1 ---
OB HPI Date/Time Date of admission: 08/30/21 Date Patient Seen: 08/30/21 Time Patient Seen: 10:30 History of Present Condition Chief complaint: L&D : 4 Para: 4 Estimated Date of Delivery: 09/03/21 Estimated Gestational Age (weeks): 39+3 Narrative: Sabrina Marks is a 31 year old LMP uncertain with self determined BROOKE of 09/03/2021 who delivered EN route to the hospital earlier today. She has received no care with this and has been a regular user of methamphetamine and marijuana throughout the . She delivered her last child without benefit of care and was a meth user at that time too. That is in foster care and this infant apparently will be as well. Patient denies any significant medical symptoms during . She did have some spotting in June 2021 at about which time she believe she 1st felt the baby move. She has 2 prior vaginal deliveries at [facility]. History of Present care: none Dating criteria: other (Best estimate by patient) Prior (ies) History: x 3 [facility] Medical History (Updated 08/30/21 @ 13:33 by Jayy Woo MD) Abnormal Pap smear of cervix Chicken pox (~1996) Surgical History History of tonsillectomy (~1999) Social History Smoking Status: Current every day smoker Meds Home Medications and Allergies Home Medications Medication Instructions Recorded Confirmed Type No Known Home Medications 08/30/21 08/30/21 History Allergies Allergy/AdvReac Type Severity Reaction Status Date / Time No Known Drug Allergies Allergy Verified 10/07/18 11:05 Review of Systems Review of Systems Narrative: Problem-specific ROS positives included in HPI Exam Vital Signs (past 8 hours): - 08/30/21 11:37 Blood Pressure 138/98 H Const General: cooperative and comfortable Nutritional Appearance: overweight Orientation: alert and oriented x3 HENMT Head: normal to inspection, atraumatic and abrasion Ears: hearing grossly normal bilaterally Nose: external nose normal Face and sinus: face symmetric Mouth: oral mucosae normal Teeth and gingiva: dentition normal Throat: posterior oropharynx normal Eyes General: appearance normal, both eyes and all related structures Conjunctivae: conjunctivae normal Sclera: sclerae normal Cornea: corneas normal Pupils: PERRL EOM: EOM intact bilaterally Neck Neck: normal visual inspection, full ROM and No lymphadenopathy Thyroid: thyroid normal Resp Effort & Inspection: normal respiratory effort and able to speak in complete sentences Auscultation: wheezes scattered wheezes Cardio Rate: regular rate Rhythm: regular rhythm Heart Sounds: S1 normal, S2 normal and no murmurs GI Inspection: normal to inspection Palpation: soft, no hepatosplenomegaly, mass (Fundus U-3) and No tender External Female Exam: other (First degree right labial laceration) Other: Upon arrival to the [facility], the placenta had passed but membranes remained in the vagina. Those membranes are easily removed. The placenta was inspected and found to be intact with central insertion of three-vessel cord. Skin General: no rashes or lesions noted Extrem General: no calf tenderness Psych Appearance: grossly normal Mental Status: mental status grossly normal Speech and Movement: speech and movement normal Mood: congruent mood Affect: normal affect Attitude: cooperative Thought Process: normal Thought Content: normal Judgment: judgment good Objective Labs Labs: Laboratory Results - last 24 hr 08/30/21 11:02 SARS-CoV-2 (PCR) Negative Assessment and Plan Assessment and Plan Assessment and Plan narrative: ASSESSMENT Intrauterine , [place], term, delivered out of hospital Superficial right labial laceration Methamphetamine abuse Tobacco user (smoker) Marijuana use PLAN Routine care labs financial services intern consult IM Depo-Provera prior to discharge Discharge later today at patient request following social service liaison visit Time Spent with Patient Total time spent with greater than 50% in coordination of care (as documented) at patient's floor/unit and/or counseling patient:: 15-24 minutes
[2021-08-30 13:41] LABS: Add Manual Diff / Slide Review NO; Basophils Absolute Auto 0 /uL (0-100); Basophils Percent Auto 0.3 % (0-2); Eosinophils Absolute Auto 100 /uL (0-450); Eosinophils Percent Auto 0.4 % (2-4); Hematocrit 30.5 % (36-46); Hemoglobin 10.2 g/dL (12.0-16.0); Lymphocytes Absolute Auto 1300 /uL (1100-4500); Mean Corpuscular HGB Conc 33.4 % (30-36); Mean Corpuscular Volume 83.9 fL (80-100); Monocytes Absolute Auto 700 /uL (0-900); Monocytes Percent Auto 4.5 % (3-14); Neutrophils Absolute Auto 12700 /uL (1500-7000); Neutrophils Percent Auto 85.8 % (50-75); Platelet Count 145 X10^3/uL (150-400); Red Blood Cell Count 3.63 X10^6/uL (4.0-5.2); Red Cell Distribution Width 13.4 % (11.6-14.8); White Blood Cell Count 14.8 X10^3/uL (4.5-11.0)
--- NOTE | 2021-08-30 14:09 | CM.SWNOTE ---
Patient is a 31 yo female who was admitted to Center on 08/30/21 today for labor. Pt has [employer] and SEE for insurance and her PCP is Dr. Patricia Holland. EMR was reviewed. Per RN, COMPUTER NETWORK SPECIALIST consult order generated due to pt's hx of polysubstance abuse, hx of infrequent care, and active CPS involvement. Per RN, MOB has been very upfront about her active CPS involvement and forthright. MOB is G4P$ and does not have custody of any of her 3 and now 4th baby. Pt has hx of in Aug 2018, in Aug 2020, and now in Aug 2021 today. SW provided RN with contact info for CPS to update them that MOB is in labor and to confirm if current assigned CPS SW will be involved. RN called CPS and initiated referral and then received confirmation that pt's assigned CPS SW Annabella Hicks out of [place] office is aware and will be bedside later today for assessment with MOB and staff to help determine safe d/c plan for baby Kendrick. SW provided direct hospital SW contact number to RN in case CPS SW Annabella needs any additional coordination but Center direct care staffer are remarkable with coordination with CPS and family. Plan: SW to follow in case additional coordination or efforts needed but CPS SW Annabella will be the deciding factor for safe d/c plan for baby. VIVIAN King
[2021-08-30] MEDS: MEDROXYPROGESTERONE 150 MG/ML SYRINGE IM (16:44)
[2021-08-30 18:18] VITALS: BP 138/98; PULSE 90; RESP 20; TEMP 36.8
[2021-08-30] MEDS: IBUPROFEN 600 MG TABLET PO (18:35)
[2021-08-30] MEDS: TET,DIPH,PERTUSS(ACELL),VAC/PF 0.5 ML SYRINGE IM (18:38)
[2021-08-30 18:50] LABS: Urine Amphetamines Positive (Negative); Urine Methamphetamines Positive (Negative); Urine Tetrahydrocannabinol Positive (Negative)
[2021-08-30 18:51] LABS: UR Morphine/Opiate cutoff 300 Negative (Negative); Ur Creatinine Normal (Normal); Ur Specific Gravity Normal (Normal); Urine Barbiturates Negative (Negative); Urine Benzodiazepines Negative (Negative); Urine Cocaine Negative (Negative); Urine MDMA Negative (Negative); Urine Methadone Negative (Negative); Urine Oxycodone Negative (Negative); Urine Phencyclidine Negative (Negative); Urine Tricyclic Antidepressant Negative (Negative); Urine pH Normal (Normal)
[2021-08-31 05:04] LABS: RPR Screen Non Reactive (Non Reactive)
--- NOTE | 2021-08-31 07:54 | P.DS_ITS ---
Discharge Providers Provider Date of admission: 08/30/21 10:22 Discharge Date: 08/30/21 Primary care physician: Patricia Holland MD Consults: 08/30/21 10:56 Consult to JEWELRY COATER - Radio Program Checker Routine Comment: JEWELRY COATER Consult: APS/CPS Crisis Referral Discharge provider: Jayy Woo MD Summary Hospital Course Date Patient Seen: 08/30/21 Time Patient Seen: 17:50 Diagnoses: Status post out of hospital from vaginal with no care Methamphetamine abuse, sporadic Marijuana use, sporadic Cigarette smoker Hospital Course: The patient presented by ambulance having delivered en route to the hospital with the placenta already delivered. The infant was a male infant but Apgars were not recorded and the weight is not recorded in the mother's chart. labs were drawn and are pending at the time of discharge. Infant will remain in the nursery on CPS hold for foster care placement with is 1-year-old sibling. Patient sustained only a very superficial right labial laceration which would not require repair and she has minimal discomfort following delivery. She will be discharged at this time to home with follow-up scheduled in 4 weeks in has been counseled regarding precautionary symptoms, limitations of activity, medications, and plans follow-up. She will use 600 mg ibuprofen for pain relief and received a Depo-Provera shot before being discharged. The time of her 4 week follow-up, sterilization will be discussed per the patient's request. Peripartum Data Delivery Method: Natural Vaginal Laceration Description: Labial (Very superficial abrasion, right labia) Episiotomy description: None complications: none 1: Gender: Male Disposition of : foster care placement Status at Discharge Cognitive/behavioral status at discharge: oriented Functional status at discharge: independent ambulation Overall status at discharge: patient is progressing back to baseline Time Spent with Patient Time attestation: Total time spent providing and/or coordinating discharge services: Time spent: Less than 30 minutes Objective Labs Result Diagrams: 08/30/21 13:13 Labs: Laboratory Results - last 24 hr 08/30/21 08/30/21 08/30/21 11:02 13:13 13:13 WBC 14.8 H RBC 3.63 L Hgb 10.2 L Hct 30.5 L MCV 83.9 MCH 28.0 MCHC 33.4 RDW 13.4 Plt Count 145 L Neut % (Auto) 85.8 H Lymph % (Auto) 9.0 L [place] % (Auto) 4.5 Eos % (Auto) 0.4 L Baso % (Auto) 0.3 Neut # (Auto) 10138 H Lymph # (Auto) 1300 [place] # (Auto) 700 Eos # (Auto) 100 Baso # (Auto) 0 U Opiates 300ng/mL cut Ur Oxycodone Screen Urine Methadone Screen Ur Barbiturates Screen U Tricyclic Antidepress Ur Phencyclidine Scrn Ur Amphetamines Screen U Methamphetamines Scrn Ur MDMA Scrn (Ecstasy) U Benzodiazepines Scrn Urine Cocaine Screen U Marijuana (THC) Screen Serum VDRL Non reactive SARS-CoV-2 (PCR) Negative Blood Type Antibody Screen 08/30/21 08/30/21 13:13 16:50 WBC RBC Hgb Hct MCV MCH MCHC RDW Plt Count Neut % (Auto) Lymph % (Auto) [place] % (Auto) Eos % (Auto) Baso % (Auto) Neut # (Auto) Lymph # (Auto) [place] # (Auto) Eos # (Auto) Baso # (Auto) U Opiates 300ng/mL cut Negative Ur Oxycodone Screen Negative Urine Methadone Screen Negative Ur Barbiturates Screen Negative U Tricyclic Antidepress Negative Ur Phencyclidine Scrn Negative Ur Amphetamines Screen Positive H U Methamphetamines Scrn Positive H Ur MDMA Scrn (Ecstasy) Negative U Benzodiazepines Scrn Negative Urine Cocaine Screen Negative U Marijuana (THC) Screen Positive H Serum VDRL SARS-CoV-2 (PCR) Blood Type O Positive Antibody Screen Negative Exam Const General: cooperative Nutritional Appearance: overweight Orientation: alert and oriented x3 HENMT Head: normal to inspection Eyes General: appearance normal, both eyes and all related structures Neck Neck: normal visual inspection External Female Exam: externally tender, external swelling (Minimal) and laceration (Very superficial right labial laceration, no repair required) Psych Appearance: grossly normal Mental Status: mental status grossly normal Speech and Movement: speech and movement normal Mood: congruent mood Affect: normal affect Attitude: cooperative Thought Process: normal Thought Content: normal Judgment: judgment good Discharge Plan Discharge Plan Patient Disposition: Home Provider Discharge Comment: Please review the written instructions you received at the time of discharge. Your follow-up appointment is scheduled for 4 weeks and I look forward to seeing you then. Discharge orders & Medications Prescriptions: New ibuprofen 600 mg Tablet 600 mg PO Q6HR PRN (Reason: Pain, Mild (1-3)) Qty: 60 RF: 1 Follow up/Referrals: Patricia Holland MD [Primary Care Provider] - 1 Month ([address] Woo 09/25 at 3:00 pm Depo repeat injection appointment with Dr Woo Nov 21, 2021 at 11:30) Jayy Woo MD [Physician] - 1 Month Discharge Health Status Multidrug resistant organism: No MDRO Diet/Activity/Treatments Diet: Diet as Tolerated Diet comment: regular Skin/Wound/Dressing Care Report to your healthcare provider any signs of infection, such as:: chills, fever, increased pain, unusual drainage and unusual redness Visit Report/Discharge Packet Instructions: DI for Labor and Delivery, Vaginal Stand Alone Forms: Discharge: Care Discharge Data Primary Care Provider: Patricia Holland
[2021-08-31 11:10] LABS: Varicella IgG Antibody 330 index (Immune >165)
[2021-08-31 19:39] LABS: Hepatitis B Surface Antigen NEGATIVE s/c (NEGATIVE)
[2021-08-31 19:59] LABS: HIV 1 & 2 Ab/Ag 4th Gen Combo NEGATIVE (NEGATIVE); Hep C Virus Ab w/Reflex Quant NEGATIVE s/c (NEGATIVE)
[2021-09-02 03:32] LABS: Chlamydia trachomatis NAA Negative (Negative); Neisseria gonorrhoeae NAA Negative (Negative)
== END 2021-08-30 20:15 | disposition home or self-care (01) | DRG 561 ==
PROVIDERS: Admitting Provider Obstetrics & Gynecology; PCP Student in an Organized Health Care Education/Training Program; Referring Provider Obstetrics & Gynecology; Visit Provider Obstetrics & Gynecology
DX: Z39.0 Encounter for care and examination of mother immediately after delivery (principal); O99.324 Drug use complicating childbirth; F15.19 Other stimulant abuse with unspecified stimulant-induced disorder; F12.99 Cannabis use, unspecified with unspecified cannabis-induced disorder; Z3A.39 39 weeks gestation of pregnancy; O99.334 Smoking (tobacco) complicating childbirth; F17.210 Nicotine dependence, cigarettes, uncomplicated
CPT/HCPCS: 36415; 80305; 85025; 86592; 86762; 86787; 86803; 86850; 86900; 86901; 87340; 87389; 87491; 87591; 87635; 99234; C9803; 90715; G0379; J1050; J1885; J2590

== ENCOUNTER 2023-10-07 00:46 | Inpatient (IN) | payer OTHER, MEDICAID, SELFPAY ==
[2023-10-07 01:23] LABS: Add Manual Diff / Slide Review NO; Basophils Absolute Auto 200 /uL (0-100); Eosinophils Absolute Auto 100 /uL (0-450); Eosinophils Percent Auto 0.8 % (2-4); Hematocrit 39.2 % (36-46); Hemoglobin 13.5 g/dL (12.0-16.0); Lymphocytes Absolute Auto 3600 /uL (1100-4500); Lymphocytes Percent Auto 21.1 % (25-40); Mean Corpuscular HGB Conc 34.5 % (30-36); Mean Corpuscular Hemoglobin 30.6 PG (26-34); Mean Corpuscular Volume 88.8 fL (80-100); Monocytes Absolute Auto 700 /uL (0-900); Monocytes Percent Auto 4.3 % (3-14); Neutrophils Absolute Auto 12300 /uL (1500-7000); Neutrophils Percent Auto 72.8 % (50-75); Platelet Count 209 X10^3/uL (150-400); Red Blood Cell Count 4.41 X10^6/uL (4.0-5.2); Red Cell Distribution Width 13.9 % (11.6-14.8); White Blood Cell Count 16.9 X10^3/uL (4.5-11.0)
--- NOTE | 2023-10-07 01:33 | P.HPOB_ITS ---
OB HPI Date/Time Date of admission: 10/07/23 Date Patient Seen: 10/07/23 Time Patient Seen: 01:33 History of Present Condition Chief complaint: LABOR Estimated Gestational Age (weeks): unknow : 5 Para: 4 care: none Dating criteria OB: other (No dating) Obstetrical complications: other (No care, Meth and marijuana use) Medical complications OB: none Preadmission Labs Last OB Lab Results: 2 Blood Type O Positive 08/30/21 13:13 Antibody Screen Negative 08/30/21 13:13 Hematocrit 39.2 % (36-46) 10/07/23 01:10 Hemoglobin 13.5 g/dL (12.0-16.0) 10/07/23 01:10 Hepatitis B Surface Antigen Negative s/c (NEGATIVE) 08/30/21 13 :13 Hepatitis C Antibody Negative s/c (NEGATIVE) 08/30/21 13:13 Rubella Antibody 4.2 IU/mL (>15) L 08/31/20 19:10 Varicella-Zoster IgG Antibody 330 index (Immune >165) 08/30/21 13:13 Group B Streptococcus (PCR) Neg for grp b strep 07/29/18 10:03 Evaluation Evaluation Baseline heart rate: 130 Variability: Moderate (11-25) monitor accelerations: Present Monitor Decelerations: Variable Contraction Frequency (minutes): 2 Uterine Contraction Intensity: Strong/Firm Dilation (cm): 8 Effacement (%): 90 station: +1 Position of cervix: anterior Consistency: soft [facility] Medical History (Updated 08/30/21 @ 13:33 by Jayy Woo MD) Abnormal Pap smear of cervix Chicken pox (~1996) Surgical History History of tonsillectomy (~1999) Social History Smoking Status: Current every day smoker Meds Home Medications and Allergies Home Medications Medication Instructions Recorded Confirmed Type ibuprofen 600 mg tablet 600 mg PO Q6HR PRN Pain, Mild 08/30/21 Rx (1-3) #60 tabs Allergies Allergy/AdvReac Type Severity Reaction Status Date / Time No Known Drug Allergies Allergy Verified 10/07/18 11:05 OB Exam Narrative Exam Narrative: Generally: Moderate distress with contractions FH: 40 cm EFW: at least 7 1/2 pounds Ext: No edema Objective Labs 10/07/23 01:10 Labs: Laboratory Results - last 24 hr 10/07/23 01:10 WBC 16.9 H RBC 4.41 Hgb 13.5 Hct 39.2 MCV 88.8 MCH 30.6 MCHC 34.5 RDW 13.9 Plt Count 209 Neut % (Auto) 72.8 Lymph % (Auto) 21.1 L [place] % (Auto) 4.3 Eos % (Auto) 0.8 L Baso % (Auto) 1.0 Neut # (Auto) 89441 H Lymph # (Auto) 3600 [place] # (Auto) 700 Eos # (Auto) 100 Baso # (Auto) 200 H Assessment and Plan Assessment and Plan Assessment and Plan narrative: Assessment: 33 year old with no care in active labor Meconium-stained amniotic fluid Admitted Meth and marijuana use Plan: GBS obtained labs Ancef 3gm IV Peds notified Urine toxicology at delivery Expectant management to [facility]
--- NOTE | 2023-10-07 01:56 | PM.OBPRVD ---
Events: No Care and Meconium Stained Fluid (thick) Labor & Delivery Delivery date: 10/07/23 Intrapartal Events: Precipitous Labor < 3 hours Cervical ripening method: none Induction method: none Delivery monitor: external FHT and external uterine Route of delivery: Episiotomy description: None L&D Laceration Description: None Quantitative Blood Loss: 100 Anesthesia Type: None Complications: None Narrative: Patient complete and pushed with 1 contraction. At 1:44 a.m., a live female delivered spontaneously in the ASHER presentation, over an intact perineum. No nuchal cord. The remainder of the body delivered without difficulty and was placed on mom's abdomen. The cord was double clamped and cut. A piece of cord for cord pH was obtained. Cord bloods were obtained. Pitocin was given in the IV fluids. The placenta delivered intact with a three-vessel cord at 1:53 a.m.. The fundus was massaged to firm. No lacerations. Apgars 9 at 1 minute and 9 at 5 minutes. Cord pH: Venous 7.217, arterial 7.148. weight: 7 lb 13 oz. mom and infant stable to recovery. Thick meconium-stained amniotic fluid. [place] Baby 1: gender: Female Presentation: vertex Position: Left Occiput Anterior Placenta delivery description: Spontaneous Cord Vessel Description: 3 Vessels and Clamped/Cut score (1 min): 9 score (5 min): 9 weight: 7 lb 13 oz Plan for aftercare: Routine care
[2023-10-07] MEDS: LACTATED RINGERS 1,000 ML 100 ML IV (02:03)
[2023-10-07 02:15] LABS: Hepatitis B Surface Antigen NEGATIVE s/c (NEGATIVE); Rubella Antibody IgG 6.2 IU/mL (>15)
[2023-10-07 02:22] LABS: Strep Grp B PCR NEG for Grp B Strep
[2023-10-07 02:38] LABS: UR Morphine/Opiate cutoff 300 Negative (Negative); Ur Creatinine Normal (Normal); Ur Specific Gravity Normal (Normal); Urine Amphetamines Positive (Negative); Urine Barbiturates Negative (Negative); Urine Benzodiazepines Negative (Negative); Urine Cocaine Negative (Negative); Urine MDMA Negative (Negative); Urine Methadone Negative (Negative); Urine Methamphetamines Positive (Negative); Urine Oxycodone Negative (Negative); Urine Phencyclidine Negative (Negative); Urine Tetrahydrocannabinol Positive (Negative); Urine Tricyclic Antidepressant Negative (Negative); Urine pH Normal (Normal)
[2023-10-07] MEDS: ACETAMINOPHEN 325 MG TABLET 650 MG PO ×3 (07:43→23:00)
[2023-10-07] MEDS: IBUPROFEN 600 MG TABLET PO ×2 (07:43→14:15)
[2023-10-07] MEDS: NICOTINE 14 PATCH 14 MG TOP (08:54)
[2023-10-07] MEDS: DOCUSATE 100 MG CAPSULE PO (08:54)
[2023-10-07] MEDS: PRENATAL VIT,CALC/IRON/FOLIC 1 TABLET 1 TAB PO (08:54)
--- NOTE | 2023-10-07 16:08 | CM.SWNOTE ---
METER TESTER POLYPHASE Note METER TESTER POLYPHASE received consult request. METER TESTER POLYPHASE reviewed EMR. Per toxicology screening, patient tested pos for methamphetamines and THC. METER TESTER POLYPHASE spoke with RN. RN reports baby has minimal withdrawal symptoms, difficulty controlling temp, fast respirations, etc. Patient has requested baby not be in the room and she does not wish to form a gibbons. METER TESTER POLYPHASE entered room and introduced self and role. Patient resting in bed. Patient lives in [place] with partner/father of baby Farooq Mcbride. Pt has 4 other children with custody of none of them. 10yr old is with his paternal aunt (different father), 5yr old is with family friend (different father), and 3 and 2 yr old (father Farooq Mcbride) were adopted by a Jolynn Snider, resident care associate in [place]. Pt and spouse are currently unemployed. Patient was unsure if she still had Medicaid or not. Pt does not have a working car. Pt reports that baby would not be a good fit with her at home. Pt claims no care. Pt stated I'm not right now and I may never be in a place to take care of her. Patient reports having no equipment in home for baby. Pt reports no additional familial support in area. Pt reports baby's paternal grandmother is in area but does not wish for baby to go to her custody and does not believe she would take baby girl. Pt wants the woman that has custody of her youngest two to take baby girl. If not her, Pt believes that woman has a friend that would be interested in adoption. Pt reports they have other family friends, Johnathon and Gabriel Lagos, that would be interested in obtaining custody of baby. Pt is waiting to hear back from some folks but believes she has a few paths of potential folks she would like to have custody of baby girl. Patient reports long history of drug usage. Currently using meth/marijuana/cocaine/tobacco. Patient denies history of treatment. Pt denies resources for treatment at this time, stating there's a long history of stuff I'm running from with it. Patient reports not interested in change at this time. Patient reports not wanting to gibbons and reports not wanting to name baby. Patient wants nurses to keep baby out in the nurses station with them. Patient reports verbal understanding of CPS involvement, stating she's been through this before. Patient was unsure of ride home. METER TESTER POLYPHASE reported that either this team licensed nuclear control room operator team could call a cab for her. METER TESTER POLYPHASE updated RN. Per RN, patient could be stable to dc today. Per RN, baby potentially stable to d/c either tomorrow morning or the following day. METER TESTER POLYPHASE spoke with Landy Michael, CPS intake. ID #[id number]. Landy reports patient has a long history of involvement with CPS. Landy reports a casey saw operator would be at the Hospital either later today or early tomorrow. METER TESTER POLYPHASE team will continue to follow closely and assist as needed. VIVIAN River
--- NOTE | 2023-10-07 19:38 | PM.OBDS.1 ---
Discharge Providers Provider Date of admission: 10/07/23 00:46 Primary care physician: Patricia Holland MD Consults: 10/08/23 01:59 Consult to Spot Checker Routine Comment: Discharge provider: Leonie Crooks DO Summary Time Spent with Patient Time attestation: Total time spent providing and/or coordinating discharge services: Objective Labs 10/07/23 01:10 Labs: Laboratory Results - last 24 hr 10/07/23 10/07/23 10/07/23 01:10 01:20 02:31 WBC 16.9 H RBC 4.41 Hgb 13.5 Hct 39.2 MCV 88.8 MCH 30.6 MCHC 34.5 RDW 13.9 Plt Count 209 Neut % (Auto) 72.8 Lymph % (Auto) 21.1 L [place] % (Auto) 4.3 Eos % (Auto) 0.8 L Baso % (Auto) 1.0 Neut # (Auto) 25432 H Lymph # (Auto) 3600 [place] # (Auto) 700 Eos # (Auto) 100 Baso # (Auto) 200 H U Opiates 300ng/mL cut Negative Ur Oxycodone Screen Negative Urine Methadone Screen Negative Ur Barbiturates Screen Negative U Tricyclic Antidepress Negative Ur Phencyclidine Scrn Negative Ur Amphetamines Screen Positive H U Methamphetamines Scrn Positive H Ur MDMA Scrn (Ecstasy) Negative U Benzodiazepines Scrn Negative Urine Cocaine Screen Negative U Marijuana (THC) Screen Positive H Hep Bs Antigen Negative Rubella Antibody 6.2 L Group B Strep (PCR) Neg for grp b strep Blood Type O Positive Antibody Screen Negative Discharge Plan Discharge Plan Patient Disposition: Home Discharge orders & Medications Follow up/Referrals: Leonie Crooks DO [Physician] - ([facility] Registration Rep- Follow Up) Kristin Perez MD [Physician] - Patricia Holland MD [Primary Care Provider] - Activity Restrictions/Additional Instructions: Pelvic rest Diet/Activity/Treatments Diet: Diet as Tolerated and Regular Skin/Wound/Dressing Care Report to your healthcare provider any signs of infection, such as:: chills, fever, increased pain and unusual drainage Visit Report/Discharge Packet Instructions: Depression Stand Alone Forms: Discharge: Care, Patient Portal/API Discharge Data Primary Care Provider: Patricia Holland
--- NOTE | 2023-10-07 19:47 | PM.DS.1 ---
History of Present Illness History of Present Illness Date Patient Seen: 10/07/23 Time Patient Seen: 19:00 Chief complaint: LABOR Discharge Providers Provider Date of admission: 10/07/23 00:46 Discharge Date: 10/07/23 Primary care physician: Patricia Holland MD Consults: 10/08/23 01:59 Consult to Slubber Machine Operator Routine Comment: Discharge provider: Leonie Crooks DO Summary Hospital Course Discharge Diagnosis: s/p Single live 39 weeks Precipitous delivery Methamphetamine and marijuana dependence Meconium fluid Insufficient care Rubella non-immune Hospital Course: 33yo presented in labor and delivered precipitously 0144, meconium fluid. No lacerations. She is recovering appropriately. She is requesting discharge POD#0 at about 18 hours . Comfortable. Appropriate lochia. Ambulating. Voiding. Tolerating regular diet. Mood is good. No care and complicated by methamphetamine and marijuana dependence, and rubella NON immune. She was scheduled today for a bilateral salpingectomy in November. She would like to be discharged tonight as a patient but will room with . Making plans for potential adoption. Reviewed precautions, depression, all questions answered. Status at Discharge Cognitive/behavioral status at discharge: oriented Functional status at discharge: independent ambulation Overall status at discharge: patient is back to baseline Time Spent with Patient Time spent: Greater than 30 minutes Time spent discussing smoking cessation with patient: 3 to 10 minutes Exam Vital Signs (past 8 hours): 121/74BP HR93 T36.1 Const General: cooperative HENMT Head: normal to inspection Eyes General: appearance normal, both eyes and all related structures Neck Neck: normal visual inspection Resp Effort & Inspection: normal respiratory effort Cardio Rate: regular rate GI Inspection: normal to inspection Skin General: no rashes or lesions noted Neuro General: patient oriented x3 Extrem General: normal to inspection Psych Appearance: grossly normal Objective Labs 10/07/23 01:10 Labs: Laboratory Results - last 24 hr 10/07/23 10/07/23 10/07/23 01:10 01:20 02:31 WBC 16.9 H RBC 4.41 Hgb 13.5 Hct 39.2 MCV 88.8 MCH 30.6 MCHC 34.5 RDW 13.9 Plt Count 209 Neut % (Auto) 72.8 Lymph % (Auto) 21.1 L [place] % (Auto) 4.3 Eos % (Auto) 0.8 L Baso % (Auto) 1.0 Neut # (Auto) 14237 H Lymph # (Auto) 3600 [place] # (Auto) 700 Eos # (Auto) 100 Baso # (Auto) 200 H U Opiates 300ng/mL cut Negative Ur Oxycodone Screen Negative Urine Methadone Screen Negative Ur Barbiturates Screen Negative U Tricyclic Antidepress Negative Ur Phencyclidine Scrn Negative Ur Amphetamines Screen Positive H U Methamphetamines Scrn Positive H Ur MDMA Scrn (Ecstasy) Negative U Benzodiazepines Scrn Negative Urine Cocaine Screen Negative U Marijuana (THC) Screen Positive H Hep Bs Antigen Negative Rubella Antibody 6.2 L Group B Strep (PCR) Neg for grp b strep Blood Type O Positive Antibody Screen Negative PFSH Medical History (Updated 08/30/21 @ 13:33 by Jayy Woo MD) Abnormal Pap smear of cervix Chicken pox (~1996) Surgical History History of tonsillectomy (~1999) Social History Smoking Status: Current every day smoker Discharge Assessment & Plan Assessment and Plan Assessment: 33yo s/p precipitous 10/07/23 0144. complicated by methamphetamine and marijuana dependence, meconium fluid, no care, rubella non immune. Discharge Plan Discharge Plan Patient Disposition: Home Discharge orders & Medications Follow up/Referrals: Leonie Crooks DO [Physician] - ([facility]- Follow Up) Patricia Holland MD [Primary Care Provider] - Activity Restrictions/Additional Instructions: Pelvic rest Diet/Activity/Treatments Diet: Diet as Tolerated and Regular Skin/Wound/Dressing Care Report to your healthcare provider any signs of infection, such as:: chills, fever, increased pain and unusual drainage Visit Report/Discharge Packet Stand Alone Forms: Patient Portal/API Discharge Data Primary Care Provider: Patricia Holland
[2023-10-07] MEDS: IBUPROFEN 400 MG TABLET 800 MG PO (23:00)
[2023-10-08 05:13] LABS: RPR Screen Non Reactive (Non Reactive)
== END 2023-10-07 23:10 | disposition home or self-care (01) | DRG 560 ==
PROVIDERS: Admitting Provider Obstetrics & Gynecology; PCP Student in an Organized Health Care Education/Training Program; Referring Provider Obstetrics & Gynecology; Visit Provider Obstetrics & Gynecology
DX: O62.3 Precipitate labor (principal); O99.324 Drug use complicating childbirth; F15.20 Other stimulant dependence, uncomplicated; F12.20 Cannabis dependence, uncomplicated; Z37.0 Single live birth; Z3A.39 39 weeks gestation of pregnancy; O99.334 Smoking (tobacco) complicating childbirth
CPT/HCPCS: 36415; 59050; 59409; 80055; 80305; 86850; 86900; 86901; 87081; 87653; G0379